=== PATIENT | female | born 1965 | race Caucasian/White ===

== ENCOUNTER 2024-05-09 06:59 | Day surgery (SDC) | payer MEDICAID, OTHER ==
[~2024-05-09] VITALS: Ht 149.9 cm; Wt 90.7 kg
[2024-05-09] MEDS ORDERED: SIMETHICONE 40 MG/0.6 ML ML ONE (08:00)
[2024-05-09] MEDS ORDERED: BENZOCAINE 20% 0.5mL UD SPRAY MM ONE (08:00)
[2024-05-09] MEDS ORDERED: MIDAZOLAM HCL 5 MG/5 ML VIAL ONE (08:01)
[2024-05-09] MEDS ORDERED: MEPERIDINE 100 MG INJ. 100 MG/ML VIAL ONE (08:01)
[2024-05-09 10:18] VITALS: O2SAT 98
[2024-05-09 15:00] VITALS: BP_SYST 119; PULSE 65; RESP 16
== END 2024-05-09 10:35 | disposition home or self-care (01) ==
LOC: SDS 06:59
PROVIDERS: ATTEND Internal Medicine
DX: R13.10 Dysphagia, unspecified (principal); K29.50 Unspecified chronic gastritis without bleeding; K31.89 Other diseases of stomach and duodenum; K22.89 Other specified disease of esophagus; K21.9 Gastro-esophageal reflux disease without esophagitis; K44.9 Diaphragmatic hernia without obstruction or gangrene; I10 Essential (primary) hypertension; E11.9 Type 2 diabetes mellitus without complications; E78.5 Hyperlipidemia, unspecified; M19.90 Unspecified osteoarthritis, unspecified site; Z90.710 Acquired absence of both cervix and uterus; Z90.89 Acquired absence of other organs; Z79.84 Long term (current) use of oral hypoglycemic drugs; Z79.899 Other long term (current) drug therapy; Z86.010 Personal history of colon polyps
CPT/HCPCS: 43248; 43239; 82948; 88305; 88312; 88313; 99152; G0378; J2250; J2175; C1769